=== PATIENT | female | born 1960 | race Caucasian/White ===

== ENCOUNTER → 2017-10-12 | Outpatient (CLI) | payer OTHER | LOC: CIMAGING 07:18 | PROVIDERS: ATTEND Family Medicine | DX: Z12.31 Encounter for screening mammogram for malignant neoplasm of breast (principal) ==

== ENCOUNTER → 2018-05-28 | Outpatient (CLI) | payer OTHER | LOC: CIMAGING 10:52 | PROVIDERS: ATTEND Family Medicine | DX: R05 Cough (principal); F17.200 Nicotine dependence, unspecified, uncomplicated | CPT/HCPCS: 71046-PO ==